=== PATIENT | female | born 2000 | race Caucasian/White ===

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

== ENCOUNTER 2018-08-06 20:25 | Emergency (ER) | payer OTHER ==
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
[2018-08-06] MEDS ORDERED: Ketorolac Tromethamine 30 MG/ML VIAL ONE (22:20)
[2018-08-06] MEDS ORDERED: Ondansetron ODT 4 MG TAB ONE (22:20)
[2018-08-06] MEDS ORDERED: Acetaminophen 500 MG TAB ONE (22:20)
== END 2018-08-06 23:04 | disposition home or self-care (01) ==
LOC: ERS 20:25
DX: S09.90XA Unspecified injury of head, initial encounter (principal); V89.2XXA Person injured in unspecified motor-vehicle accident, traffic, initial encounter
CPT/HCPCS: 70450; 96372; J1885; Q0162